=== PATIENT | male | born 1990 | race Hispanic/Latino ===

== ENCOUNTER 2023-01-28 19:53 | Emergency (ER) | payer SELFPAY ==
[2023-01-28] MEDS ORDERED: Ibuprofen 200 MG TAB ONE (20:34)
== END 2023-01-28 21:44 | disposition home or self-care (01) ==
LOC: CSHERS 19:53
DX: I10 Essential (primary) hypertension (principal)
CPT/HCPCS: 93005

== ENCOUNTER 2023-02-10 13:39 | Emergency (ER) | payer SELFPAY ==
[2023-02-10] MEDS ORDERED: cefTRIAXone (ROCEPHIN) 2 GM VIAL ONE (15:15)
[2023-02-10] MEDS ORDERED: Dexamethasone 10 MG/ML VIAL ONE (15:15)
[2023-02-10 15:19] LABS: #Eosinphils 0.1 10x3/uL (0.0-0.5); #Monocytes 0.6 10x3/uL (0.0-1.1); #Neutrophils 5.4 10x3/uL (1.5-8.4); %Basophils 0.6 % (0.0-2.0); %Eosinophils 0.9 % (0.0-6.0); %Lymphocytes 7.8 % (18.0-47.0); %Monocytes 8.7 % (0.0-10.0); %Neutrophils 81.7 % (40.0-75.0); Hematocrit 43.6 % (38.8-50.0); Hemoglobin 14.2 g/dL (13.5-17.5); Mean Corpuscular HGB CONC 32.6 g/dL (32.0-36.0); Mean Corpuscular Hemoglobin 26.5 pg (27.0-33.0); Mean Corpuscular Volume 81.3 fl (81.2-95.1); Mean Platelet Volume 10.2 fl (7.4-10.4); Platelet Count 244 10x3/uL (150-450); RBC Distribution Width 13.6 % (11.5-14.5); Red Blood Cell (RBC) Count 5.36 10x6/uL (4.32-5.72); White Blood Cell (WBC) Count 6.6 10x3/uL (3.5-10.5)
[2023-02-10 15:29] LABS: Bilirubin Neg (Negative); Blood, Urine 25 (Negative); Clarity Clear (Clear); Glucose, Urine (Dipstick) Normal (Negative); Ketone, Urine Negative (Negative); Leukocyte Negative (Negative); Nitrite Negative (Negative); Protein, Urine (Dipstick) 15 mg/dl (Neg-Trace); Specific Gravity, Urine 1.005 (1.005-1.030)
[2023-02-10] MEDS ORDERED: Ipratropium/Albuterol 3 ML NEB ONE (15:34)
[2023-02-10 15:35] LABS: ALT (SGPT) 58 U/L (8-55); AST (SGOT) 38 U/L (5-34); Albumin 4.1 g/dL (3.5-5.0); Alkaline Phosphatase 96 U/L (40-110); Anion Gap 14 mmol/L (10-20); BUN (Urea Nitrogen) 9 mg/dL (8.9-20.6); Bilirubin, Total 0.4 mg/dL (0.2-1.2); Calc. Creatinine Clearance 0 mL/min (70-130); Calcium 8.8 mg/dL (7.8-10.44); Carbon Dioxide 25 mmol/L (22-29); Chloride 101 mmol/L (98-107); Estimated GFR 121; Glucose 95 mg/dL (70-105); Lipase 26 U/L (8-78); Potassium 4.2 mmol/L (3.5-5.1); Protein, Total 7.1 g/dL (6.0-8.3); Sodium 136 mmol/L (136-145)
[2023-02-10 15:37] LABS: Troponin I Less than 0.010 ng/mL (< 0.028)
[2023-02-10 15:40] LABS: Bacteria/HPF None Seen HPF (None Seen); CAUTI Indications for Culture Fever or rigors; RBC/HPF 0-3 HPF (0-3); Squamous Epithelial None Seen HPF (0-3); WBC/HPF None Seen HPF (0-3)
[2023-02-10 15:41] LABS: Urine Culture Reflex No No
[2023-02-10 15:45] LABS: SARS-CoV-2 NAA Rapid Test DETECTED (NotDetected)
[2023-02-10] MEDS ORDERED: Ondansetron PF 4 MG/2 ML Vial ONE (16:05)
[2023-02-10] MEDS ORDERED: Acetaminophen 500 MG TAB ONE (16:06)
== END 2023-02-10 17:01 | disposition home or self-care (01) ==
LOC: CSHERS 13:39
DX: U07.1 COVID-19 (principal); J12.82 Pneumonia due to coronavirus disease 2019; I10 Essential (primary) hypertension
CPT/HCPCS: 36415; 71045; 80053; 81001; 83605; 83690; 84484; 85025; 85379; 87040; 87077; 87149; 93005; 94640; 94760; 96365; 96375; J0696; J1100; J2405; J7611; J7620; U0002